=== PATIENT | female | born 1990 | race Caucasian/White ===

== ENCOUNTER 2016-12-27 13:54 | Observation (INO) | payer OTHER, MEDICAID | END 2016-12-27 15:33 | disposition home or self-care (01) | LOC: MED SURG 13:54 | PROVIDERS: ADMIT Family Medicine; ATTEND Family Medicine | DX: Z34.03 Encounter for supervision of normal first pregnancy, third trimester (principal) | CPT/HCPCS: 59025; G0378 ==

== ENCOUNTER 2020-12-30 13:51 | Day surgery (SDC) | payer OTHER ==
[2020-12-30] MEDS ORDERED: Depo-Medrol 40 MG/ML IM ONE (13:52)
[2020-12-30] MEDS ORDERED: Sodium Chloride 0.9(Preservative Free) 10 ML IJ ONE (13:52)
[2020-12-30] MEDS ORDERED: DIPRIVAN 200 MG/20 ML IV ONE (14:52)
[2020-12-30] MEDS ORDERED: Lactated Ringers 1,000 ML IV ONE (15:35)
--- NOTE | 2020-12-30 17:13 | XRAY ---
22 seconds fluoroscopy time in surgery for left L3-L5 transforaminal LUIS FERNANDO.
--- NOTE | 2021-01-01 09:17 | XRAY ---
Indication: Left L3-S1 transforaminal LUIS FERNANDO Intraoperative fluoroscopy was provided for 22 seconds. 2 digital spot images submitted for interpretation demonstrate posterior needle tips projected over the expected course of the left L3 and L4 nerve roots. A small amount of contrast has been injected for needle tip placement. Correlate with intraoperative findings/report.
== END 2020-12-30 15:15 | disposition home or self-care (01) ==
LOC: SDC-PAIN 13:51
PROVIDERS: ATTEND Psychiatry & Neurology Pain Medicine
DX: M54.16 Radiculopathy, lumbar region (principal); Z79.899 Other long term (current) drug therapy
CPT/HCPCS: 64483; 64484; 72100; 77003; 84703; J1030; J2704; Q9966

== ENCOUNTER 2023-10-22 11:12 | Emergency (ER) | payer OTHER ==
--- NOTE | 2023-10-22 11:28 | ERPHSYRPT ---
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 full rom without pain and good engraver tender N/V intact, puncture at mid palm. soaked in hibclens. Sterile bacit dressing applied. No other injuries reported or noted. discussed risks/benefits of Augmentin and bactroban epsom salt soaks and pt wishes to pursue these treatments. Occurred: just prior to arrival Method of Injury: other (direct puncture. ) Quality: constant, sharpness Severity of Pain-Max: moderate Severity of Pain-Current: moderate Extremities Pain Location: hand: left Modifying Factors: Improves With: nothing Associated Symptoms: none Allergies/Adverse Reactions: No Known Drug Allergies Allergy (Verified 10/22/23 11:36) Home Medications: Dextroamphetamine Sulfate [Dextroamphetamine Sulfate ER] 30 mg PO DAILY 10/22/23 [History] Dextroamphetamine/Amphetamine [Adderall 10 mg Tablet] 10 mg PO DAILY 10/22/23 [History] Ibuprofen 800 mg PO DAILY 10/22/23 [History] Lumateperone Tosylate [Caplyta] 42 mg PO DAILY 10/22/23 [History] Prazosin HCl 2 mg PO DAILY 10/22/23 [History] - Review of Systems Constitutional: No Fever, No Chills Eyes: No Symptoms Ears, Nose, & Throat: No Symptoms Respiratory: No Cough, No Dyspnea Cardiac: No Chest Pain, No Edema, No Syncope Abdominal/Gastrointestinal: No Abdominal Pain, No Nausea, No Vomiting, No Diarrhea Genitourinary Symptoms: No Dysuria Musculoskeletal: No Back Pain, No Neck Pain Skin: Other (puncture left hand), No Rash Neurological: No Dizziness, No Focal Weakness, No Sensory Changes Psychological: No Symptoms Endocrine: No Symptoms Hematologic/Lymphatic: No Symptoms Immunological/Allergic: No Symptoms All Other Systems: Reviewed and Negative - Past Medical History Pertinent Past Medical History: Yes Neurological History: Migraines Cardiac History: No Pertinent History Respiratory History: No Pertinent History Endocrine Medical History: No Pertinent History Musculoskeletal History: Osteoarthritis Other Medical History: TINGLING IN TOES AT TIMES. - Past Surgical History Past Surgical History: Yes - Social History Smoking Status: Current every day smoker How long have you smoked: 10 Exposure to second hand smoke: Yes Drug Use: marijuana Patient Lives Alone: No - Nursing Vital Signs Nursing Vital Signs: Initial Vital Signs Temperature 98.0 F 10/22/23 11:25 Pulse Rate 90 10/22/23 11:25 Blood Pressure 122/60 10/22/23 11:25 O2 Sat by Pulse Oximetry 98 10/22/23 11:25 Pain Scale Pain Intensity 2 - Physical Exam General Appearance: no apparent distress, alert Eyes, Ears, Nose, Throat Exam: moist mucous membranes Neck Exam: non-tender, supple Cardiovascular/Respiratory Exam: chest non-tender, normal breath sounds, regular rate/rhythm, no respiratory distress Abdominal Exam: non-tender, No guarding Back Exam: normal inspection, No vertebral tenderness Shoulder Exam: normal inspection, non-tender, no evidence of injury, normal ROM Elbow/Forearm Exam: normal inspection, non-tender, no evidence of injury, normal ROM Wrist Exam: normal inspection, non-tender, no evidence of injury, normal ROM Hand Exam: non-tender, normal ROM, laceration (Actually this is a puncture with minimal tenderness) DTR - Upper Extremity Exam: bicep (R): 2+, bicep (L): 2+, tricep (R): 2+, tricep (L): 2+ Neuro/Tendon Exam: normal sensation, normal motor functions, normal tendon functions, no evidence tendon injury Mental Status Exam: alert, oriented x 3, cooperative Skin Exam: normal color, warm, dry SpO2 Interpretation: normal SpO2: 98 O2 Delivery: Room Air - Course Nursing assessment & vital signs reviewed: Yes - Progress Progress: improved, re-examined Progress Note: 10/22/23 12:00 discussed with pt that there still could be bala injury/penetration although no signs at present and she is comfortable and choses to defer x-ray at this time. Counseled pt/family regarding: diagnosis, need for follow-up Medical Desision Making - Discussion of managment Reviewed:: Need for additional workup Agreed on:: Treatment plan, need for follow-up - Diagnostic Testing Diagnostic test were ordered, analyzed, and reviewed by me: No - Risk of complications The pt has a mod risk of morbidity or mortality based on: Need for prescription drug management - Departure Departure Disposition: Home Clinical Impression: Puncture wound of left hand Condition: Good Critical Care Time: No Instructions: Wound Care ED Additional Instructions: There could be bacteria introduced in the puncture wound so it is at increased risk for infection and we are providing antibiotics, but close followup with your Dr. is important to recheck the wound this week . Soak in warm epsom salts at least daily and apply antibiotic ointment. Return meantime if redness, pain, drainage, fever , swelling or any other concerns. Prescriptions: Amox Tr/Potass Clav. 875 mg [Augmentin 875-125 Tablet] 875 mg PO BID #20 tablet Mupirocin [Bactroban OINTMENT] 22 gm TP BID #1 cartridge
[2023-10-22 11:38] VITALS: BP 122/60; PULSE 90; TEMP 98; O2SAT 98
[2023-10-22] MEDS: Adacel Vial IM ONE (11:57)
[2023-10-22] MEDS ORDERED: Augmentin 875-125 Tablet ONE (11:57)
[2023-10-22] MEDS ORDERED: Adacel Vial IM ONE (11:57)
[2023-10-22] MEDS: Augmentin 875-125 Tablet PO ONE (11:59)
== END 2023-10-22 12:15 | disposition home or self-care (01) ==
LOC: ED 11:12
DX: S61.432A Puncture wound without foreign body of left hand, initial encounter (principal); W27.4XXA Contact with kitchen utensil, initial encounter; Y92.239 Unspecified place in hospital as the place of occurrence of the external cause; Y99.0 Civilian activity done for income or pay; Z79.899 Other long term (current) drug therapy; Z72.0 Tobacco use; Z23 Encounter for immunization
CPT/HCPCS: 90471; 90715; 99282; A9270-GY

== ENCOUNTER 2024-08-23 15:18 | Emergency (ER) | payer OTHER ==
[2024-08-23 15:34] VITALS: RESP 18; TEMP 97.6; O2SAT 98
--- NOTE | 2024-08-23 16:07 | ERPHSYRPT ---
- History of Present Illness Source: patient Exam Limitations: no limitations Patient Subjective Stated Complaint: C/O laceration. Patient works in the dietary department and and the tip of her middle digit on her right hand on one of the carts in the dietary department today just prior to coming to the ER. Triage Nursing Assessment: Patient ambulated back to ER holding gauze over the tip of her finger. She is alert and oriented. Small amount of bleeding coming from tip of middle digit on her right hand. Area cleansed to reveal a well approximated laceration to the tip of her finger. Physician History: Patient has a laceration on her right index finger. It is not even into the subcutaneous tissue. It is less than a centimeter in length. She did at work so they required her to come in. She is not needing a tetanus shot she is up-to-date. The wound occurred from a patch. Occurred: just prior to arrival Modifying Factors: Improves With: nothing Allergies/Adverse Reactions: No Known Drug Allergies Allergy (Verified 08/23/24 15:23) Home Medications: Dextroamphetamine Sulfate [Dextroamphetamine Sulfate ER] 30 mg PO DAILY 10/22/23 [History] Dextroamphetamine/Amphetamine [Adderall 10 mg Tablet] 15 mg PO DAILY 10/22/23 [History] Hx Tetanus, Diphtheria Vaccination/Date Given: Yes Immunizations Up to Date: Yes Travel Risk - International Travel Have you traveled outside of the country in past 3 weeks: No - Emerging Infectious Disease Are you exhibiting symptoms associated with any current EIDs: No - Review of Systems Constitutional: No Symptoms Skin: No Symptoms Neurological: No Symptoms - Past Medical History Pertinent Past Medical History: Yes Neurological History: Migraines Cardiac History: No Pertinent History Respiratory History: No Pertinent History Endocrine Medical History: No Pertinent History Musculoskeletal History: Degenerative Disk Disease - Past Surgical History Past Surgical History: Yes Female Surgical History: Section - Female History Hx Now: No - Social History Smoking Status: Current every day smoker How long have you smoked: on and off Drug Use: none - Social Determinants of Health Will the patient participate in the screening: Yes Do you worry about a steady place to live?: No Do you have any problems with any of the following?: No known problems In the past 12 months,have you had to go without utilities?: No Transportation Issues: No Has anyone in your support network made you feel unsafe?: No Have you or anyone in your house had to go w/o enough food: No - Nursing Vital Signs Nursing Vital Signs: Initial Vital Signs Temperature 97.6 F 08/23/24 15:26 Pulse Rate 117 H 08/23/24 15:26 Respiratory Rate 18 08/23/24 15:26 Blood Pressure 106/66 08/23/24 15:26 O2 Sat by Pulse Oximetry 98 08/23/24 15:26 Pain Scale Pain Intensity 2 - Physical Exam General Appearance: no apparent distress Hand Exam: laceration (Less than 1 cm laceration on her index finger. It is barely into the subcutaneous tissue. There is no bleeding. The wound was explored thoroughly.. Peripheral neurovascular is intact) SpO2: 98 - Progress Progress: improved Progress Note: 08/23/24 16:06 Patient was stable throughout stay. Procedure note we just put Steri-Strips over the area and then a light p rotective dressing. Patient is to leave the Steri-Strips on until they fall off. Medical Desision Making - Risk of complications Minimal Risk: Minimal risk of morbidity - Departure Departure Disposition: Home Clinical Impression: Laceration of right index finger Condition: Stable Critical Care Time: No Referrals: GOVIND SCOTT, PARTS TECHNICIAN [Primary Care Provider] - Follow up/PCP as directed Additional Instructions: Leave the dressing on as long as possible. The Steri-Strips on until they fall off. You can replace the external dressing as needed. There is no need to put any triple antibiotic or moisturizing ointment on it.
[2024-08-23 16:25] VITALS: BP 92/70; PULSE 90
== END 2024-08-23 16:15 | disposition home or self-care (01) ==
LOC: ED 15:18
DX: S61.210A Laceration without foreign body of right index finger without damage to nail, initial encounter (principal); W26.8XXA Contact with other sharp object(s), not elsewhere classified, initial encounter; Y92.233 Cafeteria of hospital as the place of occurrence of the external cause; Y99.0 Civilian activity done for income or pay; Z79.899 Other long term (current) drug therapy; Z72.0 Tobacco use
CPT/HCPCS: 99281; 99282